=== PATIENT | female | born 1960 | race Caucasian/White ===

== ENCOUNTER 2017-02-20 08:47 | Emergency (ER) | payer OTHER ==
[~2017-02-20] VITALS: Ht 170.2 cm; Wt 79.5 kg
[2017-02-20 08:51] VITALS: BP 170/111; RESP 15; O2SAT 95
--- NOTE | 2017-02-20 09:14 | ED.REPORT ---
HPI-General Illness Date of Service Feb 20, 2017 ED Provider: Manjit Galvez MD Pt is a 56 y.o. female with a self-reported hx of multiple ear surgeries and mastoid surgery who presents to the ED c/o left ear pain described as burning onset 4 days ago. Pt states that the pain has rapidly worsened, and although she has an appointment with her PCP scheduled for Wednesday, she states she cannot wait that long. She claims that she fell asleep with her hearing aid in her ear , approximately a week ago, and the battery compartment was "unlatched". She then states that she had noticed the battery was missing but didn't "think much of it". She then began to experience a worsening burning sensation. She decide to insert her finger into her ear and claims that she felt a foreign body that she assumes to be the missing battery. She reports associated left-sided jaw pain, fever, ear swelling, and congestion which she describes as "all plugged up ". She is also unable to wear her hearing aid due to pain and swelling. She denies a cough, stating it is "no worse than usual", as well as chills Nursing Notes Stated Complaint: EAR PAIN Chief Complaint: ENT & Mouth Nursing Notes Reviewed: Yes Allergies: Coded Allergies: No Known Allergies (Unverified Allergy, Unknown, 04/08/14) Scheduled Ciprofloxacin/Hydrocortisone Otic Susp (Cipro HC Otic Susp) 10 Ml Drops.susp 4 DROP LEFT_EAR BID Scheduled PRN Hydrocodone-Acetaminophen 5-325 mg (Hydrocodone-Acetaminophen 5-325 mg) 1 Each Tablet 1 TABLET PO Q4H PRN PRN For Pain General Time Seen by MD: 09:13 Chief Complaint Ear pain Hx Obtained From: Patient Arrived By: Walk-in Sudden in Onset?: Yes Onset Occurred: 4 days ago Symptom Duration: Since onset Location: : Ear left Quality: Burning, Painful Radiation: : Jaw Severity: Current: Severe Past Medical History Past Medical History Reports: Asthma, Denies: Diabetes mellitus Reports: Thyroid disease Past Surgical History Ear surgeries (x9), pt reports Mastoid surgery Foot Reports: Knee replacement Smoking History Current Every Day Smoker Ambulatory Status Independent Review of Systems Swelling, left ear Full Review of Systems Constitutional: Reports: Fever, Denies: Chills Ears / Nose / Throat: Reports: Earache left, Mouth pain (Jaw pain, left-sided) , Nasal congestion, Denies: Earache right Respiratory: Denies: Non-productive cough Complete sys rev & neg: except as marked. Physical Exam Vital Signs Vital Signs Date Time Temp Pulse Resp B/P Pulse Ox O2 Delivery O2 Flow Rate FiO2 02/20/17 11:04 36.7 98 14 134/90 96 Room Air 02/20/17 08:51 36.6 114 15 170/111 95 Room Air Initial VS: Reviewed Respiratory: Breath sounds normal, No respiratory distress Abdomen / GI: No distention Extremities: Vascular intact, Neuro intact Skin: Warm, Dry, No cyanosis Neurologic: Alert, Oriented, Nonfocal Psychiatric: Mood/affect normal, Behavior normal, Normal thought content General/Constitutional: Awake, Alert, No acute distress, Well appearing, Well developed, Well hydrated, Well nourished, Not toxic appearing Head / Eyes: Atraumatic, Normocephalic, PERRL ENT: Atraumatic, Airway patent Left Ear / Mastoid: Positive: External canal red, Mastoid area tender, Negative: Ext canal foreign body... (None seen on exam) Trauma - General: Positive: Abrasion (At top of left ear canal) Left external canal filled with debris Left TM not visualized Neck: Atraumatic, Supple, No adenopathy Cardiovascular: Regular rhythm, Peripheral circulation NL Heart Rate / Rhythm: Positive: Tachycardia Interpretation & Diagnostics Lab Results Interpretation Result Diagram: 02/20/17 1025 Test 02/20/17 10:25 White Blood Count 9.2th/mm3 (3.8-10.1) Red Blood Count 4.50mil/mm3 (3.90-5.20) Hemoglobin 14.5g/dL (12.0-15.6) Hematocrit 42.4% (35.0-46.0) Mean Corpuscular Volume 94.2fL (81-100) Mean Corpuscular Hemoglobin 32.2pg (27.0-35.0) Mean Corpuscular Hemoglobin Concent 34.2% (32.0-37.0) Red Cell Distribution Width 12.3% (12.3-15.4) Platelet Count 259bil/L (150-400) Neutrophils (%) (Auto) 69.4% (40-74) Lymphocytes (%) (Auto) 22.7% (14-46) Monocytes (%) (Auto) 6.6% (4-12) Eosinophils (%) (Auto) 0.8% (0-5) Basophils (%) (Auto) 0.4% (0-3) Hold Morrissey Top Tube Received (Received) CT Head Interpretation IMPRESSION: #1. Mastoid air cells are fluid filled and sclerotic bilaterally. Findings are suggestive of chronic mastoiditis. 2. There is a diminutive appearance of the ossicles bilaterally with poor visualization. 3. Mildly thickened appearance of the left tympanic membrane possibly related to infection or inflammation. 4. Nonspecific soft tissue prominence within the left epitympanum. This could represent cellular debris. Cholesteatoma is felt to be less likely given the absence of scutal erosion. 5. Slightly asymmetric soft tissue prominence of the external auditory canal the left, possibly commercial sales representative of infection or inflammation. Dictated by: Melvi Elena M.D. on 02/20/2017 at 10:15 Approved by: Melvi Elena M.D. on 02/20/2017 at 10:29 Re-Eval/Medical Decision Med Decision/Clinical Course Mild tacycardia noted, had improved prior to DC. Not febrile, normal WBC don't believe she is septic. Will treat with Ciprodex and symptom control with vicodin. Follow up with ENT Source of Hx: Old records Time of Eval: 10:43 Re-Evaluation/Progress Note: Pt rechecked. Pt had re-inserted her hearing aid into her left ear. Recommended ENT follow-up. Counseled Regarding: Diagnosis, Lab results, Need for follow-up, When/why to return to ED Discharge & Departure Primary Impression: Otitis externa Otitis externa type: unspecified type Laterality: left Chronicity: acute Qualified Code: H60.502 - Unspecified acute noninfective otitis externa, left ear Additional Impression: Chronic mastoiditis of left side Disposition: Home Discharge Condition All VS Reviewed: Yes Condition: Improved Patient Instructions: Otitis Externa (ED) Additional Instructions: Emergency Department evaluation included injury, examination and CT of the mastoids. There is no foreign body in the left ear canal. There does appear to be some inflammation and scarring. Will start antibiotic eardrops, use those as prescribed. May use hydrocodone/APAP as needed for pain. Follow-up with your ear nose and throat doctor next week, bring the copy of CT report provided. Return to emergency department for fevers, increasing pain. Referrals: Dylon Ramirez MD (PCP) (Family) Gina Attestation Portions of this note were transcribed by Rui Herring. I, Dr. Galvez personally performed the history, physical exam and medical decision-making; I reviewed and confirmed the accuracy of the information in the transcribed note. Signed by: Gina Odell, 02/20/17 and 1057. copies to: Dylon Ramirez MD, Donald L MD Feb 20, 2017 09:14 RUI HERRING Feb 20, 2017 09:20
--- NOTE | 2017-02-20 10:30 | DRSVH ---
PROCEDURE: CT INTERNAL AUDITORY CANAL WITHOUT CONTRAST INDICATIONS: L canal pain, mastoid tender, prior mastoiditis. COMPARISON: None. TECHNIQUE: Noncontrast 0.6 mm thick direct axial and coronal sections acquired through each temporal bone separa tely. For radiation dose reduction, the following was used: automated exposure control, adjustment of mA and/or kV according to patient size. FINDINGS: Image quality: Excellent. RIGHT: External auditory canal: Canal has a normal appearance. Middle ear: Ossicles are diminutive and not fully visualized. Tympanic membrane is unremarkable. Inner ear: Inner ear is normally formed and appears unremarkable. Facial nerve appears normal throu ghout is course. Mastoids: Mastoid air cells are fluid filled and sclerosed. LEFT: External auditory canal: Canal demonstrates a slightly diffuse soft tissue prominence. Middle ear: There is a mild appearance of increased soft tissue density within the epitympanum. It i s overall nonspecific. The ossicles are not seen in their entirety and are diminutive. There is a min imal appearance of thickening of the tympanic membrane. There is no retraction. Inner ear: Inner ear is normally formed and appears unremarkable. Facial nerve appears normal throu ghout its course. Mastoids: Mastoid air cells are fluid filled and sclerosed. MISCELLANEOUS: Visualized surrounding bones appear unremarkable. Visualized intracranial structures , including the cerebellopontine angle cisterns, appear normal. IMPRESSION: #1. Mastoid air cells are fluid filled and sclerotic bilaterally. Findings are suggestive of chronic mastoiditis. 2. There is a diminutive appearance of the ossicles bilaterally with poor visualization. 3. Mildly thickened appearance of the left tympanic membrane possibly related to infection or inflamm ation. 4. Nonspecific soft tissue prominence within the left epitympanum. This could represent cellular debr is. Cholesteatoma is felt to be less likely given the absence of scutal erosion. 5. Slightly asymmetric soft tissue prominence of the external auditory canal the left, possibly repre sentative of infection or inflammation. Dictated by: Melvi Elena M.D. on 02/20/2017 at 10:15 Approved by: Melvi Elena M.D. on 02/20/2017 at 10:29
[2017-02-20 10:36] LABS: BASOPHILS % (AUTO) 0.4 % (0-3); EOSINOPHILS % (AUTO) 0.8 % (0-5); MONOCYTES % (AUTO) 6.6 % (4-12); Mean Corpuscular Hemoglobin 32.2 pg (27.0-35.0); Mean Corpuscular Volume 94.2 fL (81-100); NEUTROPHILS % (AUTO) 69.4 % (40-74); Platelet Count 259 bil/L (150-400)
[2017-02-20] MEDS ORDERED: CIPR10DR LEFT_EAR (10:54)
[2017-02-20] MEDS ORDERED: HYDR-4003 PO (10:54)
[2017-02-20 11:04] VITALS: BP 134/90; PULSE 98; RESP 14; O2SAT 96
== END 2017-02-20 11:06 | disposition home or self-care (01) ==
LOC: SED 08:47
DX: H60.502 Unspecified acute noninfective otitis externa, left ear (principal); H70.12 Chronic mastoiditis, left ear; J45.909 Unspecified asthma, uncomplicated; E07.9 Disorder of thyroid, unspecified; F17.200 Nicotine dependence, unspecified, uncomplicated; Z98.890 Other specified postprocedural states